=== PATIENT | male | born 1965 | race Caucasian/White ===

== ENCOUNTER → 2016-12-15 | Outpatient (CLI) | payer OTHER | LOC: CIMAGING 09:18 | PROVIDERS: ATTEND Orthopaedic Surgery | DX: Z01.818 Encounter for other preprocedural examination (principal); M16.11 Unilateral primary osteoarthritis, right hip | CPT/HCPCS: 72192-PO ==

== ENCOUNTER 2017-01-22 05:58 | Inpatient (IN) | payer OTHER ==
[2017-01-22] MEDS ORDERED: TRANEXAMIC ACID 2,000 MG in NS 100 ML IV ONE (06:00)
[2017-01-22] MEDS ORDERED: ROPIVACAINE 0.2% 80 MG, EPINEPHrine 0.2 MG, KETOROLAC TROMETHAMINE 30 MG, morphINE 10 M... IU ONE (06:00)
[2017-01-22] MEDS ORDERED: TRANEXAMIC ACID 3,000 MG in NS 50 ML IRR ONE (06:00)
[2017-01-22] MEDS ORDERED: THROMBIN (BOVINE) 5,000 UNIT VIAL TP ONE (06:07)
[2017-01-22] MEDS ORDERED: CALCIUM CHLORIDE 1 GM/10 ML INJ ONE (06:07)
[2017-01-22] MEDS ORDERED: ceFAZolin 2 GM/DEXTROSE 100 ML IV ONE (06:12)
[2017-01-22] MEDS ORDERED: ACETAMINOPHEN 325 MG TAB PO ONE (06:12)
[2017-01-22] MEDS ORDERED: FAMOTIDINE 20 MG TAB PO ONE (06:12)
[2017-01-22] MEDS ORDERED: LR 1,000 ML IV ONE (06:17)
--- NOTE | 2017-01-22 06:38 | PDHPUP ---
History & Physical Update H&P update statement: This history and physical update is based on an assessment of the patient which was completed after admission or registration (within 24 hours), but prior to the surgery/procedure.
[2017-01-22] MEDS ORDERED: POLYETHYLENE GLYCOL 3350 17 GM PKT PO PRN (06:40)
[2017-01-22] MEDS ORDERED: DIPHENOXYLATE/ATROPINE LOMOTIL 1 TAB PO PRN (06:40)
[2017-01-22] MEDS ORDERED: diphenhydrAMINE 25 MG CAP PO PRN (06:40)
[2017-01-22] MEDS ORDERED: ONDANSETRON 4 MG/2 ML VIAL IVP PRN ×2 (06:40→08:05)
[2017-01-22] MEDS ORDERED: traMADol 50 MG TAB PO PRN (06:40)
[2017-01-22] MEDS ORDERED: DIAZEPAM 5 MG TAB PO PRN (06:40)
[2017-01-22] MEDS ORDERED: TEMAZEPAM 15 MG CAP PO PRN (06:40)
[2017-01-22] MEDS ORDERED: MAGNESIUM HYDROXIDE 30 ML UDCUP PO PRN (06:40)
[2017-01-22] MEDS ORDERED: ONDANSETRON DISINTEGRATING 4 MG TAB PO PRN (06:40)
[2017-01-22] MEDS ORDERED: PROMETHAZINE HCL 25 MG/ML INJ IVP PRN (06:40)
[2017-01-22] MEDS ORDERED: BISACODYL 10 MG SUPP PR PRN (06:40)
[2017-01-22] MEDS ORDERED: PROMETHAZINE HCL 25 MG SUPPR PR PRN (06:40)
[2017-01-22] MEDS ORDERED: METOCLOPRAMIDE 10 MG/2 ML VIAL IVP PRN (06:40)
[2017-01-22] MEDS ORDERED: PHARMACY PAIN CONSULT 1 EA MISC PRN (06:40)
[2017-01-22] MEDS ORDERED: LACTULOSE 20 GM/30 ML UDCUP PO PRN (06:40)
--- NOTE | 2017-01-22 06:40 | PDIAF ---
- Diagnosis Diagnosis: right hip djd Code Status: Full Code - Medication Management Discharge Medications: Medications to Continue on Transfer Atorvastatin Calcium [Lipitor 40 mg (*)] 40 mg PO DAILY 12/15/16 [Last Taken ] Cholecalciferol Vit D3 [Vitamin D3 (*)] 5,000 units PO DAILY 12/15/16 [Last Taken 01/21/17] Hydrocodone/APAP 5/325 [[place] 5/325 (*)] 1 each PO DAILY PRN 12/15/16 [Last Taken 01/21/17] Ibuprofen [Motrin (*)] 200 mg PO DAILY PRN 12/15/16 [Last Taken 01/15/17] LISINOPRIL/HYDROCHLOROTHIAZIDE [PRINZIDE 20-25 MG TABLET] 1 each PO DAILY [Last Taken 01/20/17] Vitamin B Complex [Super B-50 Complex] 1 each PO DAILY 12/15/16 [Last Taken ] Discharge Medications: Refer to the Discharge Home Medication list for PRN reason. - Orders Services needed: Physical Therapy Activity/Weight Bearing Restrictions: wbat. anterior hip precautions. daily dressing changes. may shower without bandage. no soaking or immersion. hamlet hose x 2 weeks. f/u at two weeks. seek attn for increasing redness, drainage or discharge. aspirin 325 mg po daily - Follow Up Care Current Providers and Referrals: Chantel Reese MD [Primary Care Provider] -
[2017-01-22] MEDS ORDERED: PROPOFOL 200 MG/20 ML VIAL ONE ×6 (06:43→08:46)
[2017-01-22] MEDS ORDERED: ceFAZolin 1 GM/5 ML SYR ONE (06:49)
[2017-01-22] MEDS ORDERED: MIDAZOLAM 2 MG/2 ML VIAL IVP ONE (06:52)
--- NOTE | 2017-01-22 06:56 | PDANEPAE ---
ANE History of Present Illness 51 year old male w/ PMHx of HTN, mild obesity, and OA presents for right total hip. ANE Past Medical History - Cardiovascular History Hx Hypertension: Yes Hx Arrhythmias: No Hx Chest Pain: No Hx Coronary Artery / Peripheral Vascular Disease: No Hx CHF / Valvular Disease: No Hx Palpitations: No - Pulmonary History Hx COPD: No Hx Asthma/Reactive Airway Disease: No Hx Recent Upper Respiratory Infection: No Hx Oxygen in Use at Home: No Hx Sleep Apnea: No Sleep Apnea Screening Result - Last Documented: Positive - Neurologic History Hx Cerebrovascular Accident: No Hx Seizures: No Hx Dementia: No - Endocrine History Hx Diabetes: No Hypothyroid: No Hyperthyroid: No Obesity: mild - Renal History Hx Renal Disorders: No - Liver History Hx Hepatic Disorders: No - Neurological & Psychiatric Hx Hx Neurological and Psychiatric Disorders: No - Cancer History Hx Cancer: No - Congenital Disorder History Hx Congenital Disorders: No - GI History Hx Gastrointestinal Disorders: No - Other Health History Other Health History: OSTEOARTHRITIS - Chronic Pain History Chronic Pain: Yes (RT HIP) - Surgical History Prior Surgeries: ORAL DENTAL IMPLANTS ANE Review of Systems - Exercise capacity Exercise capacity: >=4 METS METS (RN): 4 METS ANE Patient History - Allergies Allergies/Adverse Reactions: No Known Allergies Allergy (Unverified 12/15/16 10:09) - Home Medications Home medications: home medication list seen and reviewed Home Medications: Atorvastatin Calcium [Lipitor 40 mg (*)] 40 mg PO DAILY 12/15/16 [Last Taken ] Cholecalciferol Vit D3 [Vitamin D3 (*)] 5,000 units PO DAILY 12/15/16 [Last Taken 01/21/17] Hydrocodone/APAP 5/325 [[place] 5/325 (*)] 1 each PO DAILY PRN 12/15/16 [Last Taken 01/21/17] Ibuprofen [Motrin (*)] 200 mg PO DAILY PRN 12/15/16 [Last Taken 01/15/17] LISINOPRIL/HYDROCHLOROTHIAZIDE [PRINZIDE 20-25 MG TABLET] 1 each PO DAILY [Last Taken 01/20/17] Vitamin B Complex [Super B-50 Complex] 1 each PO DAILY 12/15/16 [Last Taken ] - NPO status NPO Status: no food or drink >8 hours NPO Since - Liquids (Date): 01/21/17 NPO Since - Liquids (Time): 21:00 NPO Since - Solids (Date): 01/21/17 NPO Since - Solids (Time): 20:00 - Anes Hx Anes Hx: no prior problems - Smoking Hx Smoking Status: Never smoked - Alcohol Use Alcohol Use: Occasionally - Family Anes Hx Family Anes Hx: neg - N/A Family Hx Anesthesia Complications: NEG ANE Labs/Vital Signs - Vital Signs Vital Signs: reviewed preoperatively; see RN documention for details Blood Pressure: 149/103 Heart Rate: 77 Respiratory Rate: 16 O2 Sat (%): 95 Height: 186.69 cm Weight: 107.501 kg ANE Physical Exam - Airway Neck exam: FROM Mallampati Score: Class 2 Mouth exam: normal dental/mouth exam - Pulmonary Pulmonary: no respiratory distress - Cardiovascular Cardiovascular: regular rate and rhythym - ASA Status ASA Status: II ANE Anesthesia Plan Anesthesia Plan: MAC, spinal Total IV Anesthesia: No
[2017-01-22] MEDS ORDERED: LR 1,000 ML IV SCH (07:00)
[2017-01-22] MEDS ORDERED: NALOXONE HCL 0.4 MG/ML INJ IVP PRN (08:05)
[2017-01-22] MEDS ORDERED: LR 500 ML IV PRN (08:05)
[2017-01-22] MEDS ORDERED: OXYCODONE/APAP 5/325 TAB PO PRN (08:05)
[2017-01-22] MEDS ORDERED: DEXAMETHASONE 4 MG/ML VIAL ONE (08:20)
[2017-01-22] MEDS ORDERED: ONDANSETRON 4 MG/2 ML VIAL ONE (08:21)
[2017-01-22] MEDS ORDERED: NON-FORMULARY NEW DRUG (Lisinopril/Hydrochlorothiazide [Prinzide 20-25 Mg Tablet] 1 EACH) PO SCH (09:00)
[2017-01-22] MEDS ORDERED: fentaNYL 100 MCG/2 ML INJ ONE (09:48)
[2017-01-22] MEDS: fentaNYL 100 MCG/2 ML INJ IVP PRN ×2 (09:57→10:02)
[2017-01-22] MEDS ORDERED: HYDROmorphONE/DILAUDID 1 MG/ML SYR ONE ×3 (10:13→11:39)
[2017-01-22] MEDS: HYDROmorphONE/DILAUDID 1 MG/ML SYR IVP PRN ×8 (10:15→12:00)
[2017-01-22] MEDS: ACETAMINOPHEN 325 MG TAB PO SCH ×2 (12:52→17:23)
[2017-01-22] MEDS: oxyCODONE IR 5 MG TAB PO PRN ×3 (12:53→20:46)
[2017-01-22] MEDS: TRANEXAMIC ACID 650 MG TAB PO SCH ×3 (13:39→22:00)
[2017-01-22] MEDS: SENNOSIDES/DOCUSATE SODIUM TAB PO SCH ×2 (13:40→20:45)
[2017-01-22] MEDS: CHOLECALCIFEROL VIT D3 1,000 UNITS TAB PO SCH (13:40)
[2017-01-22] MEDS: VITAMIN B COMPLEX 1 EA CAP/TAB PO SCH (13:40)
[2017-01-22] MEDS: ceFAZolin 2 GM/DEXTROSE 100 ML IV SCH ×2 (14:09→20:45)
--- NOTE | 2017-01-22 14:47 | POSTANESTH ---
Post Anesthetic Evaluation Cardiovascular Status: Normal, Stable, Similar to Pre-Op Cond Respiratory Status: Normal, Stable, Similar to Pre-op Cond. Level of Consciousness/Mental Status: Can Participate in Eval, Alert and Oriented Pain Control: Adequate, Prn Tx Ordered Nausea/Vomiting Control: Adequate, Prn Tx Ordered Complications Possibly Related to Anesthesia: None Noted
[2017-01-22] MEDS: ATORVASTATIN CALCIUM 40 MG TAB PO SCH (18:36)
[2017-01-22] MEDS: LISINOPRIL/HCTZ 10/12.5 MG 1 EA TAB PO SCH (18:36)
[2017-01-22] MEDS: FAMOTIDINE 20 MG TAB PO SCH (20:46)
[2017-01-22] MEDS: ASPIRIN 325 MG TAB PO SCH (20:47)
[2017-01-23] MEDS: ACETAMINOPHEN 325 MG TAB PO SCH ×3 (00:01→11:38)
[2017-01-23] MEDS: oxyCODONE IR 5 MG TAB PO PRN ×4 (00:01→11:38)
[2017-01-23 04:58] LABS: HEMATOCRIT 29.8 % (40.0-51.0); HEMOGLOBIN 10.4 g/dL (13.7-17.5)
--- NOTE | 2017-01-23 07:52 | PDIAF ---
- Diagnosis Diagnosis: right hip djd Code Status: Full Code - Medication Management Discharge Medications: Medications to Continue on Transfer Atorvastatin Calcium [Lipitor 40 mg (*)] 40 mg PO DAILY 12/15/16 [Last Taken ] Cholecalciferol Vit D3 [Vitamin D3 (*)] 5,000 units PO DAILY 12/15/16 [Last Taken 01/21/17] Hydrocodone/APAP 5/325 [[place] 5/325 (*)] 1 each PO DAILY PRN 12/15/16 [Last Taken 01/21/17] Ibuprofen [Motrin (*)] 200 mg PO DAILY PRN 12/15/16 [Last Taken 01/15/17] LISINOPRIL/HYDROCHLOROTHIAZIDE [PRINZIDE 20-25 MG TABLET] 1 each PO DAILY [Last Taken 01/20/17] Vitamin B Complex [Super B-50 Complex] 1 each PO DAILY 12/15/16 [Last Taken ] Aspirin [Aspirin 325 mg (*)] 325 mg PO DAILY #0 tab 01/23/17 [Last Taken Unknown ] Diazepam [Valium 5 MG (*)] 5 mg PO Q6HRS PRN #40 tab 01/23/17 [Last Taken Unknown] oxyCODONE IR [Oxycodone Ir (*)] 5 - 10 mg PO Q3HRS PRN #70 tab 01/23/17 [Last Taken Unknown] Discharge Medications: Refer to the Discharge Home Medication list for PRN reason. - Orders Services needed: Physical Therapy Diet Recommendation: no restrictions on diet Diet Texture: Regular Texture Diet Activity/Weight Bearing Restrictions: wbat. anterior hip precautions. daily dressing changes. may shower without bandage. no soaking or immersion. hamlet hose x 2 weeks. f/u at two weeks. seek attn for increasing redness, drainage or discharge. aspirin 325 mg po daily - Follow Up Care Current Providers and Referrals: Chantel Reese MD [Primary Care Provider] -
[2017-01-23 08:01] VITALS: PULSE 75; RESP 15; TEMP 97.8; O2SAT 95
--- NOTE | 2017-01-23 08:31 | GDS ---
[f rep st] DISCHARGE SUMMARY ADMISSION DIAGNOSIS: Right hip degenerative joint disease. DISCHARGE DIAGNOSIS: Right hip degenerative joint disease. PROCEDURE: Right total hip arthroplasty. HISTORY OF PRESENT ILLNESS: The patient is a 51-year-old gentleman with end-stage arthritis to his right hip. Clinical and radiographic features are consistent with this. He has failed all attempts at conservative management. I have, therefore, recommended total hip replacement. He understood t he risks, benefits, alternatives, and wished to proceed. Written consent was signed and placed in [place] [facility] chart. HOSPITAL COURSE: The patient was admitted to the hospital floor after uncomplicated total hip arthr oplasty. He tolerated the procedure well. He had no subsequent complications. At the time of disc harge, he is tolerating an oral diet. His pain is well controlled on oral medicines. He is voiding without difficulty. His dressing is clean, dry, and intact. He has no calf swelling or tenderness . Negative Homans bilateral lower extremities. X-rays are stable. DISCHARGE ACTIVITIES: Anterior hip precautions. May shower without the bandage. Daily dressing ch anges. No soaking or immersion. He is weightbearing as tolerated. SHELTON valerio x2 weeks. DISCHARGE MEDICATIONS: Oxycodone 5 mg 1-2 every 4 hours p.r.n. pain, Valium 5 mg 1 p.o. q.8 hours p .r.n. spasm, and aspirin 325 mg p.o. daily for 6 weeks. FOLLOWUP: Follow up in 2 weeks for repeat evaluation. Seek attention for increasing redness, swell ing, drainage, or discharge. /[id number]/MODL
[2017-01-23] MEDS: LISINOPRIL/HCTZ 10/12.5 MG 1 EA TAB PO SCH (08:51)
[2017-01-23] MEDS: CHOLECALCIFEROL VIT D3 1,000 UNITS TAB PO SCH (08:52)
[2017-01-23] MEDS: FAMOTIDINE 20 MG TAB PO SCH (08:52)
[2017-01-23] MEDS: SENNOSIDES/DOCUSATE SODIUM TAB PO SCH (08:52)
[2017-01-23] MEDS: ASPIRIN 325 MG TAB PO SCH (08:53)
[2017-01-23] MEDS: ATORVASTATIN CALCIUM 40 MG TAB PO SCH (08:53)
[2017-01-23] MEDS: VITAMIN B COMPLEX 1 EA CAP/TAB PO SCH (08:54)
[2017-01-23 08:56] VITALS: BP 146/78
--- NOTE | 2017-01-23 11:56 | ASMTCASEMG ---
Living Arrangements What is your living arrangement? Who do you live Answers: With Spouse with? Type Of Residence What kind of residence do you live in? Answers: House Case Management Evaluation Functional: Able to return Home with Prior Level Answers: Yes of Function/Care Discharge Plan Comments Coordination Status Comments Notes: Pt s/p R INGRID. PT cleared. Pt discharging home today w/no CM needs. Date Signed: 01/23/2017 11:11 AM Electronically Signed By:Nisha Yung
--- NOTE | 2017-01-23 11:56 | ASDISCHSUM ---
Discharge Information Plan Status:Home with No Needs Medically Cleared to Leave:01/23/2017 Discharge Date:01/23/2017 12:21 PM D/C Disposition:Home Health Service [facility] D/C Disposition:Home, Routine, Self-Care Projected Discharge Date:01/23/2017 12:21 PM Transportation at D/C:Family Discharge Delay Reason: Follow-Up Date:01/23/2017 12:21 PM Discharge Slot: Final Diagnosis: Placement Information Patient Contact Information Contact Name:JAVON Relationship: Address:[address] [place]:[facility] Phone: State/Zip Code:[place] [address] Email: Financial Information Financial Class:HMO and PPO Plans Primary Plan Desc:NICOLE OQUENDO PPO Primary Plan Number:[id number] Secondary Plan Desc: Secondary Plan Number: Assessment Information [facility] Initial CM Assessment Living Arrangements What is your living Answers: With Spouse arrangement? Who do you live with? Type Of Residence What kind of residence do Answers: House you live in? Case Management Evaluation Functional: Able to Answers: Yes return Home with Prior Level of Function/Care Discharge Plan Comments Coordination Status Comments Notes: Pt s/p R INGRID. PT cleared. Pt discharging home today w/no CM needs. Date Signed: 01/23/2017 11:11 AM Electronically Signed By:Nisha Yung Intervention Information
--- NOTE | 2017-01-26 07:38 | GOP ---
[f rep st] OPERATIVE REPORT DATE OF OPERATION: 01/22/2017 SURGEON: Darrel Parsons MD RETAIL OFFICE ASSOCIATE: Gustavo Elias, PROJECT SCIENTIST, [facility], who was a medical necessity for the entirety of the case. PREOPERATIVE DIAGNOSIS: Right hip degenerative joint disease. POSTOPERATIVE DIAGNOSIS: Right hip degenerative joint disease. PROCEDURE PERFORMED: Right total hip arthroplasty. FINDINGS: SPECIMENS: To Pathology: The femoral head. INDICATIONS: The patient is a 51-year-old gentleman with end-stage arthritis to his right hip. He has clinical radiograph features consistent with hip arthritis. He has failed all attempts at conse rvative management. I have, therefore, recommended operative intervention. He understood the risks , benefits, alternatives, and wished to proceed. Written consent was signed and placed in the patie nt's chart. DESCRIPTION OF PROCEDURE: The patient was identified in the preanesthesia area. The right hip madelin rly demarcated as the operative site with indelible marker. He was given 2 g of Ancef intravenously en route to the operative suite. In the OR, general endotracheal anesthesia was administered. Att ention was turned to the right hip which was sterilely prepped and draped in usual fashion. The pel vis and both lower extremities were sterilely draped. Appropriate time-out procedure was carried ou t. Attention was first turned to the left iliac crest. A 2 cm incision was made. Three pins were then placed in the pelvic reference array affixed. Attention was then turned to the right hip. An anterior approach was made. Thick subcutaneous flap s were elevated. The fascia of the tensor fascia amie was opened. The tensor was then retracted in lateral direction. The underlying vascular structures were then identified, ligated, cauterized an d transected. The rectus was elevated off the anterior capsule. Retractors were placed across the medial and superior aspect of the femoral neck. A "T" was made in the capsule and the retractors we re placed into an intracapsular position. An acetabular checkpoint was then placed. A bony wedge w as removed from the femoral neck, followed by removal of the head. The remnants of the acetabular l abrum were sharply excised. All bony landmarks were then entered into the computer in standard [facility] ion. Using the MAKOplasty protocol, a single stage reaming with a 56 mm reamer was carried out. Th is was placed to the appropriate depth and opening angle of 40 degrees with 20 degrees of anteversio n. A 56-mm Tritanium shell was then impacted fully. This was stable and secure, and no screws were placed. A 0-degree X3 liner was then placed and confirmed to be fully seated. Attention was turned to the femur. This was delivered through the wound with use of extension of th e table and soft tissue releases. The canal was opened with a rongeur. Serial broaching was [place] d out to a size 6 stem, and trial reductions were carried out. Intraoperative fluoroscopy was utili zed to confirm position. Ultimately, a 36 mm,0 +7.5 mm neck length was selected. The trial stem wa s withdrawn, the final stem impacted and confirmed to be fully seated. Additional trialing was john ied out and a 36 mm, +7.5 mm Biolox head was then impacted across the trunnion. The hip was copious ly irrigated, reduced. Leg lengths were restored. Appropriate position on fluoroscopy was confirme d and stability profile revealed full extension, external rotation to 90 degrees with traction witho ut any evidence of instability. The wound was then copiously irrigated with pulsatile lavage solution, closed in layers using 0 Vicr yl, 2-0 Monocryl, and heena. The deep structures were instilled with a platelet-rich plasma and a joint cocktail of ropivacaine, morphine, Toradol, and epinephrine. Sterile dressings were applied. The patient was awakened, extubated, taken to recovery in good, stable condition. TOTAL TOURNIQUET TIME: None. COMPLICATIONS: None. IMPLANTS: The [place]ildardo Tritanium acetabulum, size 56 mm. Trident X3 0-degree polyethylene insert, 3 6 mm. Biolox delta ceramic head, 36, +7.5 mm. Accolade II 127-degree neck angle hip stem, size 6. /[id number]/MODL
== END 2017-01-23 12:21 | disposition home or self-care (01) | DRG 470 ==
LOC: F3N 05:58
PROVIDERS: ADMIT Orthopaedic Surgery; ATTEND Orthopaedic Surgery
PROC: 0SR904Z Replacement of Right Hip Joint with Ceramic on Polyethylene Synthetic Substitute, Open Approach (ICD-10-PCS; principal; 2017-01-22 07:15)
CPT/HCPCS: 97110-GP; 97116-GP; 97161-GP; 97165-GO; 97530-GP; J0171; J0690; J1100; J1170; J1885; J2250; J2405; J2704; J2795; J3010

== ENCOUNTER → 2017-02-05 | Outpatient (CLI) | payer OTHER | LOC: BMCIMAGING 09:34 | PROVIDERS: ATTEND Physician Assistant | DX: Z47.1 Aftercare following joint replacement surgery (principal); Z96.641 Presence of right artificial hip joint ==

== ENCOUNTER → 2017-03-05 | Outpatient (CLI) | payer OTHER | LOC: BMCIMAGING 10:59 | PROVIDERS: ATTEND Physician Assistant | DX: Z47.1 Aftercare following joint replacement surgery (principal); Z96.641 Presence of right artificial hip joint ==

== ENCOUNTER → 2017-04-11 | Outpatient (CLI) | payer OTHER | LOC: BMCIMAGING 09:50 | PROVIDERS: ATTEND Orthopaedic Surgery | DX: Z47.1 Aftercare following joint replacement surgery (principal); Z96.641 Presence of right artificial hip joint ==

== ENCOUNTER → 2017-07-12 | Outpatient (CLI) | payer OTHER | LOC: BMCIMAGING 09:39 | PROVIDERS: ATTEND Physician Assistant | DX: Z47.1 Aftercare following joint replacement surgery (principal); Z96.641 Presence of right artificial hip joint ==

== ENCOUNTER → 2018-01-09 | Outpatient (CLI) | payer OTHER | DX: Z47.1 Aftercare following joint replacement surgery (principal); Z96.641 Presence of right artificial hip joint ==